=== PATIENT | male | born 1965 | race Caucasian/White ===

== ENCOUNTER 2017-10-01 11:51 | Emergency (ER) | payer BC ==
[2017-10-01 12:20] VITALS: BP 129/71; PULSE 82; RESP 18; TEMP 97; O2SAT 99
[2017-10-01] MEDS ORDERED: Sodium Chloride 0.9% 2,000 ML IV STA (12:46)
--- NOTE | 2017-10-01 13:01 | ED PDOC ---
HPI: General Adult Time Seen by Provider: 10/01/17 12:59 Chief Complaint (Nursing): High Blood Sugar Chief Complaint (Provider): ELEVATED BLOOD SUGAR History Per: Patient (52 Y/O MALE H/O IDDM, HTN, HIV HERE FOR "HIGH' NOTED ON ACCUCHECK MACHINE TODAY. DENIES ANY ABD PAIN/N/V. DENIES ANY CHANGE IN EATING PATTERN.) Past Medical History Reviewed: Historical Data, Nursing Documentation, Vital Signs Vital Signs: Last Vital Signs Temp 97.0 F L 10/01/17 12:18 Pulse 82 10/01/17 12:18 Resp 18 10/01/17 12:18 BP 129/71 10/01/17 12:18 Pulse Ox 99 10/01/17 13:01 - Medical History PMH: HIV, HTN, Hypercholesterolemia - Family History Family History: States: No Known Family Hx - Home Medications Home Medications: Ambulatory Orders Medication Instructions Recorded Bismuth Subsalicylate [Pepto 262 mg PO Q4H PRN #240 ml 09/22/14 Bismol] Ondansetron [Zofran] 4 mg PO Q8H #9 tab 09/22/14 Non-Formulary 1 ea .ROUTE DAILY #1 ea 10/01/17 - Allergies Allergies/Adverse Reactions: Allergies Allergy/AdvReac Type Severity Reaction Status Date / Time No Known Allergies Allergy Verified 09/22/14 09:36 Review of Systems ROS Statement: Except As Marked, All Systems Reviewed And Found Negative Physical Exam - Reviewed Nursing Documentation Reviewed: Yes Vital Signs Reviewed: Yes - Physical Exam Appears: Positive for: Well, Non-toxic, No Acute Distress Head Exam: Positive for: ATRAUMATIC, NORMAL INSPECTION, NORMOCEPHALIC Skin: Positive for: Normal Color, Warm, DRY Eye Exam: Positive for: EOMI, Normal appearance, PERRL ENT: Positive for: Normal ENT Inspection Neck: Positive for: Normal, Painless ROM Cardiovascular/Chest: Positive for: Regular Rate, Rhythm Respiratory: Positive for: CNT, Normal Breath Sounds Gastrointestinal/Abdominal: Positive for: Normal Exam, Soft Back: Positive for: Normal Inspection Extremity: Positive for: Normal ROM Neurologic/Psych: Positive for: Alert, Oriented - Laboratory Results Result Diagrams: 10/01/17 13:10 - ECG O2 Sat by Pulse Oximetry: 99 - Progress ED Course And Treament: ACCUCHECK HERE 92 PATIENT REPEATED TESTING ON HIS MACHINE NOTED HIGH WILL DOUBLECHECK WITH BMP Disposition - Clinical Impression Clinical Impression: Hyperglycemia, Glucometer instruction, encounter for - Patient ED Disposition Is Patient to be Admitted: No - Disposition Disposition: Routine/Home Disposition Time: 13:40 Condition: FAIR Prescriptions: Non-Formulary 1 ea .ROUTE DAILY #1 ea Instructions: Blood Glucose Monitoring, Blood Glucose Test
[2017-10-01 13:24] LABS: BLOOD UREA NITROGEN 28 mg/dl (9-20); CALCIUM 9.5 mg/dL (8.4-10.2); GFR AFRICAN-AMERICAN > 60; GFR NON-AFRICAN AMERICAN > 60
== END 2017-10-01 13:50 | disposition home or self-care (01) ==
LOC: H.ER 11:51
DX: E11.65 Type 2 diabetes mellitus with hyperglycemia (principal); Z79.4 Long term (current) use of insulin; E78.00 Pure hypercholesterolemia, unspecified; I10 Essential (primary) hypertension